=== PATIENT | male | born 1945 | race Caucasian/White ===

== ENCOUNTER 2021-03-04 23:46 | Emergency (ER) | payer MEDICARE ==
[2021-03-05 00:48] LABS: #Basophils 0.1 thou/uL (0.0-0.2); #Eosinphils 0.6 thou/uL (0.0-0.7); #Lymphocytes 2.5 thou/uL (1.20-3.40); #Monocytes 0.9 thou/uL (0.11-0.59); %Basophils 1.5 % (0.0-1.0); %Eosinophils 5.6 % (0.0-10.0); %Lymphocytes 25.1 % (21.0-51.0); %Monocytes 8.7 % (0.0-10.0); %Neutrophils 59.2 % (42.0-75.0); Hemoglobin 15.1 g/dL (14.0-18.0); Mean Corpuscular HGB CONC 33.4 g/dL (32.0-36.0); Platelet Count 137 thou/uL (130-400); RBC Distribution Width 11.9 % (11.5-14.5); Red Blood Cell (RBC) Count 4.71 mill/uL (4.70-6.10); White Blood Cell (WBC) Count 10.1 thou/uL (4.8-10.8)
[2021-03-05 01:20] LABS: Chloride 110 mmol/L (98-107); Potassium 4.3 mmol/L (3.5-5.1); Sodium 137 mmol/L (136-145)
[2021-03-05 01:21] LABS: Calcium 8.9 mg/dL (7.8-10.44); Glucose 99 mg/dL (83-110)
[2021-03-05 01:23] LABS: Bilirubin, Total 1.5 mg/dL (0.2-1.2); Carbon Dioxide 12 mmol/L (23-31)
[2021-03-05 01:24] LABS: Alkaline Phosphatase 69 U/L (40-110)
[2021-03-05 01:25] LABS: Calc. Creatinine Clearance 0 mL/min (70-130)
[2021-03-05 01:26] LABS: BUN (Urea Nitrogen) 20 mg/dL (8.4-25.7)
[2021-03-05 01:27] LABS: ALT (SGPT) 24 U/L (8-55); AST (SGOT) 28 U/L (5-34)
[2021-03-05 01:44] LABS: Bilirubin Negative (Negative); Blood, Urine Negative (Negative); Clarity Clear (Clear); Glucose, Urine (Dipstick) Normal (Negative); Ketone, Urine Negative (Negative); Leukocyte Negative Leu/uL (Negative); Nitrite Negative (Negative); Protein, Urine (Dipstick) Negative (Neg-Trace); Specific Gravity, Urine 1.023 (1.002-1.036); Urobilinogen Normal mg/dL (Less than 2)
[2021-03-05 01:59] LABS: Anion Gap 19 mmol/L (10-20)
[2021-03-05 05:28] LABS: Anion Gap 12 mmol/L (10-20); BUN (Urea Nitrogen) 19 mg/dL (8.4-25.7); Calc. Creatinine Clearance 0 mL/min (70-130); Calcium 9.2 mg/dL (7.8-10.44); Carbon Dioxide 23 mmol/L (23-31); Chloride 106 mmol/L (98-107); Glucose 98 mg/dL (83-110); Potassium 3.7 mmol/L (3.5-5.1); Sodium 137 mmol/L (136-145)
[2021-03-05] MEDS ORDERED: Iopamidol 370 76% 100 ML VIAL ONE (12:23)
== END 2021-03-05 06:05 | disposition home or self-care (01) ==
LOC: ERS 23:46
DX: K40.90 Unilateral inguinal hernia, without obstruction or gangrene, not specified as recurrent (principal); I10 Essential (primary) hypertension
CPT/HCPCS: 36415; 71260; 74177; 80053; 81003; 85025; Q9967